=== PATIENT | female | born 1945 | race Caucasian/White ===

== ENCOUNTER 2018-01-22 20:27 | Emergency (ER) | payer OTHER, BC ==
[~2018-01-22] VITALS: Ht 157.5 cm; Wt 53.0 kg
[~2018-01-22 20:27] MED LIST: AMBIEN5 MG PO; AMLODIPINE BESY10 MG PO; AMLODIPINE BESYL5 MG PO; BENADRYL25 MG PO; DEXAMETHASONE4 MG PO; FISH OIL CONCE1 EAC1 PO; LISINOPRIL20 MG PO; MELATIN3 MG PO; MULTIVITAMIN1 EAC2 PO; PROCHLORPERAZIN10 MG PO; VITAMIN C500 M1 PO
[2018-01-22 21:08] LABS: HEMATOCRIT 44.8 % (36.0-46.0); HEMOGLOBIN 15.6 G/DL (11.9-15.5); MCH 33.3 PG (29.0-34.0); MCHC 34.8 G/DL (30.0-36.0); MCV 95.5 FL (83-99); PLATELET COUNT 198 K/uL (156-360); RBC DIS.WIDTH-SD 41.8 % (39-53); RED BLOOD COUNT 4.69 M/uL (3.80-5.20); WHITE BLOOD COUNT 6.6 K/uL (4.1-10.2)
[2018-01-22 21:17] LABS: CHLORIDE 109 mEq/L (99-109); POTASSIUM 3.9 mEq/L (3.7-5.4); SODIUM 143 mEq/L (136-147)
[2018-01-22 21:18] LABS: GLUCOSE 107 mg/dL (70-99)
[2018-01-22 21:22] LABS: CREATININE 0.8 mg/dL (0.6-1.3); GFR ESTIMATE (CALCULATED) > 59 mL/min/
[2018-01-22 21:23] LABS: UREA NITROGEN (BUN) 21 mg/dL (9-23)
[2018-01-22 22:19] VITALS: BP 172/74
== END 2018-01-22 22:20 | disposition home or self-care (01) ==
LOC: EME 20:27
PROVIDERS: Emergency Medicine
DX: I10 Essential (primary) hypertension (principal); Z87.891 Personal history of nicotine dependence; Z88.2 Allergy status to sulfonamides; Z88.1 Allergy status to other antibiotic agents
CPT/HCPCS: 80048; 85027; 99281; 99283